=== PATIENT | female | born 1995 | race Two or more races ===

== ENCOUNTER 2020-10-18 21:12 | Emergency (ER) | payer SELFPAY ==
[2020-10-18 21:41] VITALS: BP 140/65
--- NOTE | 2020-10-18 22:11 | ER Document Report ---
HPI - HPI Time Seen by Provider: 10/18/20 21:55 Pain Level: 1 Notes: 25-year-old female patient presented to the emergency department with complaints of shortness of breath. Patient reports she tested positive for Covid, she tested 6 days ago and received her results 4 days ago. Patient reports the shortness of breath is very persistent but worse with movement. She denies any past medical history. She states "it feels like there is water in my lungs". She has not taken any medications for her symptoms. She states she was seen at a pharmacy to have her Covid swab done. She reports that her family was concerned about her difficulty breathing so decided to come to the emergency department. - ROS Systems Reviewed and Negative: Yes All other systems reviewed and negative - RESPIRATORY Respiratory: REPORTS: Coughing Notes: Shortness of breath Past Medical History - General Information source: Patient - Social History Smoking Status: Current Some Day Smoker Frequency of alcohol use: Occasional Family History: Reviewed & Not Pertinent Patient has homicidal ideation: No - Medical History Medical History: Negative Surgical Hx: Negative Vertical Provider Document - CONSTITUTIONAL Agree With Documented VS: Yes Notes: PHYSICAL EXAMINATION: GENERAL: Well-appearing, well-nourished and in no acute distress. HEAD: Atraumatic, normocephalic. EYES: Pupils equal round extraocular movements intact, conjunctiva are normal. ENT: Nares patent NECK: Normal range of motion LUNGS: No respiratory distress, lung sounds clear and equal bilaterally. Musculoskeletal: Normal range of motion NEUROLOGICAL: Normal speech, normal gait. PSYCH: Normal mood, normal affect. SKIN: Warm, Dry, normal turgor, no rashes or lesions noted. Course - Re-evaluation Re-evalutation: Patient does have a multifocal pneumonia noted on x-ray. We did ambulate around the room with a pulse ox and she will maintain O2 saturations of 98%. There is no indication for admission at this time. Patient will be started on appropriate medications and discharged home. ED return precautions discussed, patient verbalized understanding and agreement with same. - Vital Signs Vital signs: Temp Pulse Resp BP Pulse Ox 98.4 F 95 18 140/65 H 97 10/18/20 21:39 10/18/20 21:39 10/18/20 21:39 10/18/20 21:39 10/18/20 21:39 - Laboratory Results Critical Laboratory Results Reviewed: No Critical Results - Radiology Results Critical Radiology Results Reviewed: No Critical Results Discharge - Discharge Clinical Impression: COVID-19, Shortness of breath Pneumonia Qualifiers: Pneumonia type: due to unspecified organism Laterality: unspecified laterality Lung location: unspecified part of lung Qualified Code(s): J18.9 - Pneumonia, unspecified organism Condition: Stable Disposition: HOME, SELF-CARE Additional Instructions: Your xray shows that you do have a pneumonia. Please take medications as prescribed. Push fluids. Get plenty of rest. Do not over exert yourself. Tylenol or Motrin for fever and body aches. Good handwashing and stay away from others. Continue to follow guidance as given by the health department as far as quarantining. Please call your primary care provider to schedule a follow-up appointment to be seen in the next 3 to 5 days. If you do not have a primary care provider I have listed a few options for you below. Return to the emergency department with any new or worsening symptoms such as worsening difficulty breathing, or any other worsening symptoms. Prescriptions: Benzonatate [Tessalon Perles 100 mg Capsule] 1 - 2 tab PO Q8HP PRN #30 capsule PRN Reason: Amoxicillin/Potassium Clav [Augmentin 875-125 Tablet] 1 tab PO BID #14 tab Prednisone [Deltasone 20 mg Tablet] 3 tab PO DAILY 4 Days #12 tablet Referrals: RAJNI MARTINO MD [COMMUNITY BASED STAFF] - Follow up as needed JOSEPH TANNER MD [ACTIVE STAFF] - Follow up as needed
[2020-10-18] MEDS ORDERED: PREDNISONE 20 MG TABLET PO ONE (22:14)
[2020-10-18] MEDS ORDERED: ALBUTEROL SULFATE HFA (90 MCG/PUFF) 8 GM MDI IH ONE (22:14)
--- NOTE | 2020-10-18 23:08 | RADIOLOGY REPORT (SQ) ---
EXAM DESCRIPTION: XR CHEST 1 VIEW COMPLETED DATE/TME: 10/18/2020 22:41 CLINICAL HISTORY: 25 years Female, covid+ short of breath COMPARISON: None. NUMBER OF VIEWS/TECHNIQUE: 1/AP FINDINGS: Mild patchy opacities, central and lower. Adequate lung volume, normal cardiac silhouette, and intact bony thorax. IMPRESSION: Multifocal pneumonia. Differential diagnosis includes pulmonary edema.Imaging features can be seen with (COVID-19 or viral) pneumonia, though are nonspecific and can occur with a variety of infectious and noninfectious processes. [PneInd]
[2020-10-18] MEDS ORDERED: AZITHROMYCIN 250 MG TABLET PO ONE (23:13)
[2020-10-18] MEDS ORDERED: AMOXICILLIN TR/POT CLAVULANATE 875-125 MG TAB PO ONE (23:25)
== END 2020-10-18 23:47 | disposition home or self-care (01) ==
LOC: ER 21:12
DX: U07.1 COVID-19 (principal); J18.9 Pneumonia, unspecified organism; R06.02 Shortness of breath; F17.200 Nicotine dependence, unspecified, uncomplicated
CPT/HCPCS: 99283; 71045; J7512; J3490 ×2